=== PATIENT | female | born 1960 | race Caucasian/White ===

== ENCOUNTER → 2018-02-12 | Outpatient (CLI) | payer MEDICARE ==
[2018-02-12 11:05] LABS: Blood Urea Nitrogen 13 mg/dL (7-17)
--- NOTE | 2018-02-12 12:37 | CT ---
EXAMINATION TYPE: CT brain wo/w con, CT orbits wo/w con DATE OF EXAM: 02/12/2018 COMPARISON: NONE HISTORY: Thyrotoxicosis (accession [id number]), thyrotoxicosis (accession [id number]). History of multipl e myeloma and Graves' disease. Left eye swelling. CT DLP: 2166.96 (accession [id number]), 612.58 (accession [id number]) mGycm Automated Exposure Control f or Dose Reduction was Utilized. TECHNIQUE: CT scan of the head and orbits is performed with IV contrast.,CT scan of the head is perfo rmed without and with without and with IV Contrast, patient injected with 100 mL of Isovue 300. FINDINGS: Noncontrast images show no acute intracranial hemorrhage or midline shift. Prominent eladio vascular spaces seen at the level of the right inferior basal ganglia. Small choroid calcification is seen within the foramen of Vasquez. The ventricles and sulci are within normal limits in size. Postco ntrast images show no suspicious enhancing intraparenchymal mass. The globes are intact and the visua lized sinuses are clear. Numerous prominent arachnoid granulations are seen in addition to numerous s ubcentimeter punched-out lesions within the calvarium. No plasmacytomas seen. No widening of the dip loic space. There is bilateral exophthalmos. Lenses are symmetric and maintain their normal position within the a nterior chamber. There is enlargement of the inferior rectus and medial rectus musculature as well as to a lesser degree at the superior rectus and lateral rectus without enlargement of the superior obl ique musculature. The orbital nerves are symmetric but demonstrate peripheral enhancement. There is n o preseptal or post septal inflammatory fat stranding. Superior ophthalmic veins remain nonenlarged. No intraconal or extraconal fat stranding or focal masses seen. Lacrimal glands are symmetric. IMPRESSION: 1. In addition to exophthalmos and extraocular muscle enlargement relating to Graves' ophthalmopathy there is symmetric perineural enhancement of the optic nerve suggesting optic neuritis. Consideration s could be for inflammatory etiology, viral etiology, or demyelinating disease and MRI could be perfo rmed if there is underlying concern for multiple sclerosis. 2. No evidence of intracranial enhancing mass, acute infarct or intracranial hemorrhage. 3. Multiple calvarial lytic lesions in keeping with the patient's history of multiple myeloma. No foc al plasmacytoma is seen.
== END ==
LOC: RADCTMAIN 10:20
PROVIDERS: ATTEND Ophthalmology
DX: E05.00 Thyrotoxicosis with diffuse goiter without thyrotoxic crisis or storm (principal); R93.0 Abnormal findings on diagnostic imaging of skull and head, not elsewhere classified
CPT/HCPCS: 82565; 84520; 70470; 70482; 36415; Q9967

== ENCOUNTER → 2019-01-21 | Outpatient (CLI) | payer MEDICARE ==
[2019-01-21 09:33] LABS: Anisocytosis Slight; Basophils % (A) 1 %; Eosinophils # (A) 0.1 k/uL (0-0.7); Eosinophils % (A) 4 %; HCT 37.1 % (34.0-46.0); HGB 11.9 gm/dL (11.4-16.0); Lymphocytes % (A) 34 %; MCH 29.3 pg (25.0-35.0); MCHC 32.2 g/dL (31.0-37.0); MCV 90.9 fL (80.0-100.0); Mean Platelet Volume 7.2; Monocytes # (A) 0.3 k/uL (0-1.0); Monocytes % (A) 9 %; Neutrophils # (A) 1.4 k/uL (1.3-7.7); Neutrophils % (A) 49 %; Platelet Count 147 k/uL (150-450); RBC 4.08 m/uL (3.80-5.40); RDW 16.6 % (11.5-15.5); WBC 2.9 k/uL (3.8-10.6)
== END | disposition home or self-care (01) ==
LOC: LABWHC1 08:48
PROVIDERS: ATTEND Internal Medicine
DX: C90.01 Multiple myeloma in remission (principal)
CPT/HCPCS: 36415; 85025

== ENCOUNTER 2019-02-28 18:40 | Observation (INO) | payer MEDICARE ==
[2019-02-28] MEDS ORDERED: SODIUM CHLORIDE 0.9% 1,000 ML IV STA (19:55)
[2019-02-28] MEDS ORDERED: diphenhydrAMINE 50 MG/ML 1 ML VIAL IVP STA (19:55)
[2019-02-28] MEDS ORDERED: MAGNESIUM SULFATE-D5W PMX 1 GM in DEXTROSE/WATER 1 100ML.BAG IVPB ONE (19:55)
[2019-02-28] MEDS ORDERED: METOCLOPRAMIDE 5 MG/ML 2 ML VIAL IVP STA (19:55)
[2019-02-28] MEDS ORDERED: DEXAMETHASONE SOD PHOSPHATE 10 MG/ML 1 ML VIAL IV STA (19:56)
[2019-02-28 20:52] LABS: Basophils % (A) 1 %; Eosinophils # (A) 0.2 k/uL (0-0.7); Eosinophils % (A) 5 %; HCT 40.2 % (34.0-46.0); Lymphocytes # (A) 0.8 k/uL (1.0-4.8); Lymphocytes % (A) 15 %; MCH 30.4 pg (25.0-35.0); MCHC 32.4 g/dL (31.0-37.0); MCV 93.8 fL (80.0-100.0); Mean Platelet Volume 6.7; Monocytes # (A) 0.5 k/uL (0-1.0); Monocytes % (A) 9 %; Neutrophils # (A) 3.6 k/uL (1.3-7.7); Neutrophils % (A) 69 %; Platelet Count 132 k/uL (150-450); RBC 4.28 m/uL (3.80-5.40); RDW 15.8 % (11.5-15.5); WBC 5.2 k/uL (3.8-10.6)
[2019-02-28 21:00] LABS: INR 0.9 (<1.2)
[2019-02-28 21:01] LABS: Partial Thromboplastin Time 22.7 sec (22.0-30.0); Prothrombin Time 9.8 sec (9.0-12.0)
[2019-02-28 21:02] LABS: ALT 39 U/L (9-52); AST 29 U/L (14-36); African American GFR (CKD) >90 (>60 ml/min/1.73 sqM); Albumin 4.5 g/dL (3.5-5.0); Alkaline Phosphatase 85 U/L (38-126); Anion Gap 8 mmol/L; Blood Urea Nitrogen 13 mg/dL (7-17); Calcium 9.5 mg/dL (8.4-10.2); Carbon Dioxide 27 mmol/L (22-30); Chloride 105 mmol/L (98-107); Glucose 89 mg/dL (74-99); Potassium 4.1 mmol/L (3.5-5.1); Sodium 140 mmol/L (137-145); Total Bilirubin 0.3 mg/dL (0.2-1.3); Total Protein 6.6 g/dL (6.3-8.2)
--- NOTE | 2019-02-28 22:00 | CT ---
EXAMINATION TYPE: CT brain wo con DATE OF EXAM: 02/28/2019 COMPARISON: 02/12/2018 HISTORY: Headaches and dizziness x2 weeks. CT DLP: 1474.4 mGycm Automated exposure control for dose reduction was used. FINDINGS: Ventricles and sulci appear normal. There is no mass effect nor midline shift. There is no sign of in tracranial hemorrhage. There is no sign of posterior fossa mass. Calvarium is intact. There is no roshan dence of cerebral edema. IMPRESSION: NEGATIVE CT SCAN OF THE BRAIN. NO CHANGE.
--- NOTE | 2019-02-28 22:22 | CT ---
EXAM: CT Angiography Head With Intravenous Contrast CLINICAL HISTORY: Reason: pain TECHNIQUE: Axial computed tomographic angiography images of the head with intravenous contrast using CT angiography protocol. CTDI is 48.8 mGy and DLP is 1088 mGy-cm. This CT exam was performed using one or more of the following dose reduction techniques: automated exposure control, adjustment of the mA and/or kV according to patient size, and/or use of iterative reconstruction technique. MIP reconstructed images were created and reviewed. Coronal and sagittal reformatted images were created and reviewed. COMPARISON: No relevant prior studies available. FINDINGS: Right internal carotid artery: No acute findings. Intracranial segment is patent with no significant stenosis. No aneurysm. Right anterior cerebral artery: Unremarkable. No occlusion or significant stenosis. No aneurysm. Right middle cerebral artery: Unremarkable. No occlusion or significant stenosis. No aneurysm. Right posterior cerebral artery: Unremarkable. No occlusion or significant stenosis. No aneurysm. Right vertebral artery: Unremarkable as visualized. Left internal carotid artery: No acute findings. Intracranial segment is patent with no significant stenosis. No aneurysm. Left anterior cerebral artery: Unremarkable. No occlusion or significant stenosis. No aneurysm. Left middle cerebral artery: Unremarkable. No occlusion or significant stenosis. No aneurysm. Left posterior cerebral artery: Unremarkable. No occlusion or significant stenosis. No aneurysm. Left vertebral artery: Unremarkable as visualized. Basilar artery: Unremarkable. No occlusion or significant stenosis. No aneurysm. IMPRESSION: Normal head CTA. EXAM: CT Angiography Neck With Intravenous Contrast CLINICAL HISTORY: pain TECHNIQUE: Axial computed tomographic angiography images of the neck with intravenous contrast using CT angiography protocol. CTDI is 8.3 mGy and DLP is 364.2 mGy-cm. This CT exam was performed using one or more of the following dose reduction techniques: automated exposure control, adjustment of the mA and/or kV according to patient size, and/or use of iterative reconstruction technique. MIP reconstructed images were created and reviewed. Coronal and sagittal reformatted images were created and reviewed. COMPARISON: No relevant prior studies available. FINDINGS: VASCULATURE: Right common carotid artery: Unremarkable. No significant stenosis. No dissection or occlusion. Right internal carotid artery: Unremarkable. Extracranial segment is patent with no significant stenosis. No dissection or occlusion. Right external carotid artery: Unremarkable. No occlusion. Right vertebral artery: Unremarkable. No significant stenosis. No dissection or occlusion. Left common carotid artery: Unremarkable. No significant stenosis. No dissection or occlusion. Left internal carotid artery: Unremarkable. Extracranial segment is patent with no significant stenosis. No dissection or occlusion. Left external carotid artery: Unremarkable. No occlusion. Left vertebral artery: Unremarkable. No significant stenosis. No dissection or occlusion. NECK: Bones/joints: No acute fracture. No dislocation. Soft tissues: Unremarkable as visualized. No mass. CAROTID STENOSIS REFERENCE USING NASCET CRITERIA: % ICA stenosis = (1 - narrowest ICA diameter/diameter of distal cervical ICA) x 100. Mild - <50% stenosis. Moderate - 50-69% stenosis. Severe - 70-94% stenosis. Near occlusion - 95-99% stenosis. Occluded - 100% stenosis. IMPRESSION: No significant stenosis left or right common or internal carotid artery. Normal appearance of the right vertebral artery.
[2019-02-28] MEDS ORDERED: NALOXONE 0.4 MG/ML 1 ML VIAL IV PRN (22:43)
--- NOTE | 2019-02-28 22:43 | ED ---
Headache HPI - General Chief Complaint: Headache Stated Complaint: HEADACHE, DIZZINESS, ALTERED Time Seen by Provider: 02/28/19 19:04 Mode of arrival: wheelchair Limitations: no limitations - History of Present Illness Initial Comments: The patient is a 58-year-old female who presents to the emergency department with reported headache that started on February 15. She states she was in [place] at that time. She had sudden onset of an occipital headache after having a bowel movement. She did go into [facility]. She was found have an elevated blood pressure at that time. She was admitted and had an MRI performed which demonstrated no acute findings. She was sent home on Fioricet. States that she is dependent on the medication. She takes it every 4 hours as well as Aleve every 12 hours. States that her headache has been persistent. She has been seen twice additionally in the emergency department for the same complaint. Reports that she will get a migraine cocktail and it will keep her headache at bay for a day. She has yet to follow-up with neurology. Continues to report an occipital headache without radiation. She is tender to touch. Denies any associated fevers, chills. No visual changes, unilateral numbness or weakness, slurred speech or facial droop. Reports that today while while making dinner she had an episode of ataxia. States that she was unable to keep her balance and was walking into the cabinets in the kitchen. This did cause her to become acutely concerned she is brought into the emergency room by her family. She is not on any blood thinners. No recent head trauma or chiropractic manipulations. There are no alleviating, precipitating or modifying factors - Related Data Home Medications Medication Instructions Recorded Confirmed Acyclovir 400 mg PO BID 02/28/19 02/28/19 Aspirin EC [Ecotrin Low Dose] 81 mg PO DAILY 02/28/19 02/28/19 Cetirizine HCl [Zyrtec] 5 mg PO DAILY 02/28/19 02/28/19 Lenalidomide [Revlimid] 10 mg PO DIRECTED 02/28/19 02/28/19 Methimazole [Tapazole] 5 mg PO HS 02/28/19 02/28/19 Previous Rx's Medication Instructions Recorded Gabapentin [Neurontin] 300 mg PO HS #30 cap 03/01/19 Allergies Allergy/AdvReac Type Severity Reaction Status Date / Time No Known Allergies Allergy Verified 02/28/19 20:27 Review of Systems ROS Statement: Those systems with pertinent positive or pertinent negative responses have been documented in the HPI. ROS Other: All systems not noted in ROS Statement are negative. Past Medical History Past Medical History: Cancer History of Any Multi-Drug Resistant Organisms: None Reported Past Surgical History: Orthopedic Surgery Past Psychological History: No Psychological Hx Reported Smoking Status: Never smoker Past Alcohol Use History: Occasional Past Drug Use History: None Reported - Past Family History Father Family Medical History: No Reported History General Exam Limitations: no limitations General appearance: alert, in no apparent distress Head exam: Present: atraumatic, normocephalic, other (tenderness to palpation of the occiput near the occipital nerve distribution) Eye exam: Present: normal appearance, PERRL, EOMI. Absent: scleral icterus, conjunctival injection, periorbital swelling ENT exam: Present: normal exam, mucous membranes moist Neck exam: Present: normal inspection. Absent: tenderness, meningismus, lymphadenopathy Respiratory exam: Present: normal lung sounds bilaterally. Absent: respiratory distress, wheezes, rales, rhonchi, stridor Cardiovascular Exam: Present: regular rate, normal rhythm, normal heart sounds. Absent: systolic murmur, diastolic murmur, rubs, gallop, clicks GI/Abdominal exam: Present: soft, normal bowel sounds. Absent: distended, tenderness, guarding, rebound, rigid Extremities exam: Present: normal inspection, full ROM, normal capillary refill. Absent: tenderness, pedal edema, joint swelling, calf tenderness Back exam: Present: normal inspection Neurological exam: Present: alert, oriented X3, CN II-XII intact Psychiatric exam: Present: normal affect, normal mood Skin exam: Present: warm, dry, intact, normal color. Absent: rash Course Vital Signs 02/28/19 02/28/19 02/28/19 18:56 22:20 23:39 Temperature 97.8 F 98.8 F Pulse Rate 71 61 66 Respiratory 20 18 18 Rate Blood Pressure 168/104 127/74 119/69 O2 Sat by Pulse 99 98 99 Oximetry Medical Decision Making - Medical Decision Making Upon arrival the patient is placed into room 9. She is hooked up to continuous pulse ox and cardiac monitoring. A thorough history and physical exam was performed. Peripheral IV was established. The patient was given 1 g of magnesium, 10 milligrams of Decadron, 10 mg of Reglan and 25 mg of Benadryl. I did recommend laboratory studies as well as CT angios of the patient's head and neck due to her reported new onset ataxia. The patient did agree to this. Upon return of the results they are discuss with the patient. I did a repeat a neurologic evaluation which demonstrated no neurologic deficits. The patient continues to have an NIH stroke scale of 0. She reports that her headache is completely resolved at this time. Due to the patient's report of ataxia, I did recommend neurologic evaluation for which the patient did agree. I did call discuss the case with Dr. pham who did accept admission of the patient. I will place Doctor Don on consult. Patient remained in stable condition and was transported to the floor - Differential Diagnosis acute headache, suspected occipital neuralgia - Lab Data Result diagrams: 02/28/19 20:42 02/28/19 20:42 Lab Results 02/28/19 02/28/19 02/28/19 Range/Units 20:42 20:42 20:42 WBC 5.2 (3.8-10.6) k/uL RBC 4.28 (3.80-5.40) m/uL Hgb 13.0 (11.4-16.0) gm/dL Hct 40.2 (34.0-46.0) % MCV 93.8 (80.0-100.0) fL MCH 30.4 (25.0-35.0) pg MCHC 32.4 (31.0-37.0) g/dL RDW 15.8 H (11.5-15.5) % Plt Count 132 L (150-450) k/uL Neutrophils % 69 % Lymphocytes % 15 % Monocytes % 9 % Eosinophils % 5 % Basophils % 1 % Neutrophils # 3.6 (1.3-7.7) k/uL Lymphocytes # 0.8 L (1.0-4.8) k/uL Monocytes # 0.5 (0-1.0) k/uL Eosinophils # 0.2 (0-0.7) k/uL Basophils # 0.0 (0-0.2) k/uL PT 9.8 (9.0-12.0) sec INR 0.9 (<1.2) APTT 22.7 (22.0-30.0) sec Sodium 140 (137-145) mmol/L Potassium 4.1 (3.5-5.1) mmol/L Chloride 105 (98-107) mmol/L Carbon Dioxide 27 (22-30) mmol/L Anion Gap 8 mmol/L BUN 13 (7-17) mg/dL Creatinine 0.73 (0.52-1.04) mg/dL Est GFR (CKD-EPI)AfAm >90 (>60 ml/min/1.73 sqM) Est GFR (CKD-EPI)NonAf >90 (>60 ml/min/1.73 sqM) Glucose 89 (74-99) mg/dL Calcium 9.5 (8.4-10.2) mg/dL Total Bilirubin 0.3 (0.2-1.3) mg/dL AST 29 (14-36) U/L ALT 39 (9-52) U/L Alkaline Phosphatase 85 (38-126) U/L Total Protein 6.6 (6.3-8.2) g/dL Albumin 4.5 (3.5-5.0) g/dL TSH 0.190 L (0.465-4.680) mIU/L Free T4 1.37 (0.78-2.19) ng/dL Disposition Clinical Impression: Cephalgia Disposition: ADMITTED IP TO THIS [facility] Condition: Stable Is patient prescribed a controlled substance at d/c from ED?: No Decision to Admit Reason: Admit from EC Decision Date: 02/28/19 Decision Time: 22:43
[2019-02-28 23:08] LABS: T4, Free (Free Thyroxine) 1.37 ng/dL (0.78-2.19)
[2019-02-28] MEDS ORDERED: ACETAMINOPHEN TAB 325 MG TAB PO PRN (23:34)
[2019-03-01 00:09] VITALS: BMI 25.6
[2019-03-01 04:58] VITALS: RESP 18; TEMP 98
[2019-03-01] MEDS ORDERED: LENALIDOMIDE 10 MG PO SCH ×3 (09:00→21:00)
[2019-03-01] MEDS ORDERED: ASPIRIN 81 MG PO SCH (09:00)
[2019-03-01] MEDS ORDERED: ACYCLOVIR 200 MG CAP PO SCH (09:00)
[2019-03-01] MEDS ORDERED: LORATADINE 10 MG TAB PO SCH (09:00)
--- NOTE | 2019-03-01 10:28 | P.CNNES ---
History of Present Illness Consult date: 03/01/19 Requesting physician: Iris Gutiérrez Reason for Consult: headache, ataxia Chief complaint: Headache, confusion and imbalance History of Present Illness: THis is a 58 RH female h/o multiple myeloma and Graves' disease. 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 On 02/12/19, she was visiting family in [place]. She was in the midst of having a bowel movement when she suddenly developed an excruciating pain that originated at the upper cervical/skull base with radiation to the occipital area. It has affected both sides. There is a lancinating quality to the discomfort, which at its worst is 10+/10. In between attacks, she feels "bruised" pointing to the bilateral suboccipital muscles. When she was in [place], she was checked out medically with a CT and MRI Brain, both reportedly unrevealing per patient. We do not have the medical reports for review today. On 02/25/19, she went to her primary care doctor who prescribed her Fioricet, which she has been taking q12h. She is well aware of the risk of habituation and medication overuse headache with this particular medicine. She recalls that MSO4 did not touch the pain. Toradol did seem to help a little. Typically, the pain is not associated with any neurological symptoms. But, yesterday she felt confused and was off balance bumping into things, so she de cided to present to the ER. She did get chiropractic manipulation up until her diagnosis of multiple myeloma in 2013. Denies associated F/C/S, photosonophobia, N/V, vertigo, drop attacks, seizure, diplopia, amaurosis, facial numbness/droop, bulbar symptoms, alternating or hemianesthesia or paresis or bowel/bladder incontinence. Review of Systems I have performed a 14-point organ ROS with patient; pertinents are as per HPI. Past Medical History Past Medical History: Cancer Additional Past Medical History / Comment(s): Multiple Myeloma History of Any Multi-Drug Resistant Organisms: None Reported Past Surgical History: Orthopedic Surgery Past Anesthesia/Blood Transfusion Reactions: No Reported Reaction Past Psychological History: No Psychological Hx Reported Smoking Status: Never smoker Past Alcohol Use History: Occasional Past Drug Use History: None Reported - Past Family History Father Family Medical History: No Reported History Medications and Allergies Home Medications Medication Instructions Recorded Confirmed Type Acyclovir 400 mg PO BID 02/28/19 02/28/19 History Aspirin EC [Ecotrin Low Dose] 81 mg PO DAILY 02/28/19 02/28/19 History Butalb/Acetaminophen/Caffeine 1 tab PO Q4H PRN 02/28/19 02/28/19 History [Fioricet 50-325-40] Cetirizine HCl [Zyrtec] 5 mg PO DAILY 02/28/19 02/28/19 History Lenalidomide [Revlimid] 10 mg PO DIRECTED 02/28/19 02/28/19 History Methimazole [Tapazole] 5 mg PO HS 02/28/19 02/28/19 History Naproxen Sodium [Aleve] 220 mg PO Q12HR 02/28/19 02/28/19 History Allergies Allergy/AdvReac Type Severity Reaction Status Date / Time No Known Allergies Allergy Verified 02/28/19 20:27 Physical Examination - Vital Signs Vital Signs: Vital Signs Temp Pulse Pulse Resp BP BP Pulse Ox 03/01/19 04:58 98 F 67 18 110/64 97 03/01/19 00:16 97.5 F L 63 16 136/83 99 02/28/19 23:39 98.8 F 66 18 119/69 99 02/28/19 22:20 61 18 127/74 98 02/28/19 18:56 97.8 F 71 20 168/104 99 Intake and Output 02/28/19 03/01/19 03/01/19 22:59 06:59 14:59 Other: Voiding Method Toilet # Voids 1 Weight 69.853 kg Gen NAD Pleasant and cooperative HEENT NCAT Sclera without icterus O/P clear Neck Supple No carotid bruit +Pain on palpation of right rectus capitis Cor RRR no m/r/g Lungs CTAB Abd Soft NTND +BS Ext Warm to touch No edema Neuro MS A+Ox4 Normal fluency Able to follow all commands and articulate a detailed medical history CN PERRL VFF no APD EOMI no nystagmus or JIGNESH No facial asymmetry Masseter's symmetric Hearing intact to normal voice bilaterally Speech not dysarthric Equal elevation of palate Tongue midline Sym shrug and SCM bilaterally Motor Normal bulk/tone No pronator drift or tremors Strength 5/5 sym throughout Sens Intact to LT x4 No neglect Coord No dysmetria on FTN bilaterally DTRs 2+/4 sym throughout Toes downgoing bilaterally No clonus at achilles Gait Deferred Results - Laboratory Findings CBC and BMP: 02/28/19 20:42 02/28/19 20:42 Abnormal Lab Findings: Abnormal Labs 02/28/19 02/28/19 20:42 20:42 RDW 15.8 H Plt Count 132 L Lymphocytes # 0.8 L TSH 0.190 L - Diagnostic Findings Additional findings: CT Head wo cont 02/28/19. No ICH. Nil acute. CTA Head/Neck 02/28/19. No LVO or stenosis. No aneurysm. I have reviewed neuroimages myself. Assessment and Plan Assessment: Occipital headache, suspect occipital neuralgia Plan: -MRI Brain wo abel given c/o acute confusion and ataxia -MRI C-spine wo abel given h/o multiple myeloma and would like to examine structural integrity of C-spine in particular C1-C2 level given occipital nerve originates from C2 -Start gabapentin 300mg po qhs -Dosing instructions and potential side effects of the AED d/w patient. If it turns out to be too strong, she should hold med until she can get in to see an outpatient neurologist who does pain management for consideration of occipital nerve block -If MRIs unrevealing, may discharge and arrange for follow-up with local outpatient neurology within one week -Follow up with endocrinology for her Graves' that if not under control can affect global neurological functioning -d/w patient in great detail. All questions answered. She is agreeable with the above plan -Neurology will be available again on 03/04/19. Thank you for this consultation. Please call with ?. Time with Patient: Greater than 30 (Time spent in direct patient care, greater than 50% of which was spent in [id number] counseling and coordination of care: 70 minutes)
[2019-03-01] MEDS ORDERED: GABAPENTIN 300 MG CAP PO STA (12:50)
[2019-03-01] MEDS ORDERED: KETOROLAC 30 MG/ML 1 ML VIAL IVP STA (15:10)
[2019-03-01] MEDS ORDERED: PROCHLORPERAZINE 5 MG TAB PO PRN (15:11)
--- NOTE | 2019-03-01 15:29 | MR ---
EXAMINATION TYPE: MR brain/cspine wo DATE OF EXAM: 03/01/2019 COMPARISON: CT brain 02/28/2019 HISTORY: Headache CONTRAST: Performed utilizing 0 mL intravenous Gadavist gadolinium contrast. TECHNIQUE: Multiplanar, multiecho imaging on a 3.0 Mel magnet is performed through the brain. Stud y is performed within 24 hours of arrival to the hospital. The craniovertebral junction is normal. The pituitary is normal. Diffusion-weighted imaging is performed. No abnormal hyperintensity is present to suggest an acute i ntracranial infarct or acute ischemic change. Small amount of mild periventricular white matter hyperintensity may be present, likely on the basis of chronic white matter ischemic changes. Few small subcortical punctate areas of hyperintensity are present. Ventricles and sulci are appropriate for the patient age. IMPRESSIONS: 1. Mild periventricular white matter ischemic type changes. EXAMINATION TYPE: MR brain/cspine wo DATE OF EXAM: 03/01/2019 COMPARISON: None HISTORY: Headache Ataxia CONTRAST: Performed utilizing 0 mL intravenous Gadavist gadolinium contrast. TECHNIQUE: Multiplanar multiecho imaging on a 3.0 Mel magnet is performed through the cervical spin e. FINDINGS: The craniovertebral junction is normal. Vertebral body alignment is normal. There is los s of disc height possible congenital changes at the C4-5 level. C7-T1: No focal disc herniation or significant disc bulge is evident. No spinal canal stenosis or n eural foraminal stenosis is present. C6-7: Small amount of central disc bulging is present with mild anterior thecal sac contact. No cord contact is evident. No spinal canal stenosis or neural foraminal.. C5-6: Broad-based endplate changes and disc bulge is present with moderate anterior thecal sac compre ssion. This comes in close approximation with the spinal cord. No cord contact or cord deformity is e vident. No spinal canal stenosis or neural foraminal stenosis is present.. C4-5: Disc spaces narrowed. No disc bulge is evident. Posterior vertebral body fusion is not excluded . No residual disc bulge is evident. Neural foramen are patent C3-4: Mild central bulge is present with anterior thecal sac contact. No spinal canal stenosis or frederick ral foraminal stenosis is present. There is some increased signal on T2 sagittal images suggesting sm all annular tear along the inferior posterior disc space.. C2-3: No focal disc herniation or significant disc bulge is evident. No spinal canal stenosis or frederick ral foraminal stenosis is present. IMPRESSIONS: 1. Endplate changes and disc bulging C5-6 with moderate anterior thecal sac compression without cord contact or stenosis. 2. Possible small annular tear minimal disc bulging C3-4.
--- NOTE | 2019-03-01 15:45 | P.PN ---
Progress Note - Text Progress Note Date: 03/01/19 MRI Brain wo abel showed a few scattered tiny foci on T2/FLAIR that are inconsequential and not explicatory of her headache or other neuro c/o confusion or ataxia. MRI C-spine wo abel does show disc bulge at C3-C4 and C5-C6 but without neuroforaminal or central stenosis or cord compression. In short, her neuroimaging does not reveal an acute neurological structural explanation. Acute pain management per primary team. Recommend gabapentin 300mg po qhs and follow up with outpatient neurology next week for consideration of occipital nerve block. Stable for discharge from neuro standpoint. d/w RN. Please call with new ?.
[2019-03-01 16:18] VITALS: BP 152/96; PULSE 56
--- NOTE | 2019-03-01 17:13 | P.HPIM ---
History of Present Illness H&P Date: 03/01/19 Chief Complaint: Headache Patient is a 58-year-old female with a known history of Graves' disease, multiple myeloma came to ER with complaints of headache mainly right occipital region.On 02/12/19, she was visiting family in [place]. She was in the midst of having a bowel movement when she suddenly developed an excruciating pain that originated at the upper cervical/skull base with radiation to the occipital area. It has affected both sides. There is a lancinating quality to the discomfort, which at its worst is 10+/10. In between attacks, she feels "bruised" pointing to the bilateral suboccipital muscles. When she was in [place], she was checked out medically with a CT and MRI Brain, both reportedly unrevealing per patient. On 02/25/2019 patient went to see her recently and was prescribed Fioricet which she has been taking every 12 hours. Patient presents to hospital with headache currently. Patient says that she felt confused and off balance and bumping into things which made her to come to ER. She did get chiropractic manipulation up until her diagnosis of multiple myeloma in 2013. Denies associated F/C/S, photosonophobia, N/V, vertigo, drop attacks, seizure, diplopia, amaurosis, facial numbness/droop, bulbar symptoms, alternating or hemianesthesia or paresis or bowel/bladder incontinence. CT head showed no acute intracranial process. CT angiogram of the head and neck showed no significant stenosis of the left arm and right common or internal carotid artery. Normal appearance of the right vertebral artery. TSH 0.19 and free T4 level is 1.37 Patient received Decadron IV, magnesium sulfate, Benadryl IV in the ER. Review of Systems Constitutional: Patient denies any fever or chills . No generalized weakness or weight loss. Abdomen: Patient denied nausea vomiting and diarrhea and abdominal pain. Cardiovascular: Patient denies any chest pain or short of breath no palpitations. Respiratory: patient denied any cough is from production. No shortness of breath Neurologic: Patient denied any numbness or tingling . Patient does have occipital headache. Musculoskeletal: Patient denies any complaints of joint swelling or deformity. Skin: Negative Psychiatric: Negative Endocrine: No heat or cold intolerance. No recent weight gain. Genitourinary: No dysuria or hematuria. All other 14 point ROS negative except the above Past Medical History Past Medical History: Cancer Additional Past Medical History / Comment(s): Multiple Myeloma History of Any Multi-Drug Resistant Organisms: None Reported Past Surgical History: Orthopedic Surgery Past Anesthesia/Blood Transfusion Reactions: No Reported Reaction Past Psychological History: No Psychological Hx Reported Smoking Status: Never smoker Past Alcohol Use History: Occasional Past Drug Use History: None Reported - Past Family History Father Family Medical History: No Reported History Medications and Allergies Home Medications Medication Instructions Recorded Confirmed Type Acyclovir 400 mg PO BID 02/28/19 02/28/19 History Aspirin EC [Ecotrin Low Dose] 81 mg PO DAILY 02/28/19 02/28/19 History Butalb/Acetaminophen/Caffeine 1 tab PO Q4H PRN 02/28/19 02/28/19 History [Fioricet 50-325-40] Cetirizine HCl [Zyrtec] 5 mg PO DAILY 02/28/19 02/28/19 History Lenalidomide [Revlimid] 10 mg PO DIRECTED 02/28/19 02/28/19 History Methimazole [Tapazole] 5 mg PO HS 02/28/19 02/28/19 History Naproxen Sodium [Aleve] 220 mg PO Q12HR 02/28/19 02/28/19 History Allergies Allergy/AdvReac Type Severity Reaction Status Date / Time No Known Allergies Allergy Verified 02/28/19 20:27 Physical Exam Vitals: Vital Signs Temp Pulse Pulse Resp BP BP Pulse Ox 03/01/19 04:58 98 F 67 18 110/64 97 03/01/19 00:16 97.5 F L 63 16 136/83 99 02/28/19 23:39 98.8 F 66 18 119/69 99 02/28/19 22:20 61 18 127/74 98 02/28/19 18:56 97.8 F 71 20 168/104 99 Intake and Output 02/28/19 03/01/19 03/01/19 22:59 06:59 14:59 Other: Voiding Method Toilet # Voids 1 Weight 69.853 kg PHYSICAL EXAMINATION: Patient is lying in the bed comfortably, no acute distress, awake alert and oriented.. HEENT: Normocephalic. Neck is supple. Pupils reactive. Nostrils clear. Oral cavity is moist. Ears reveal no drainage. Neck reveals no JVD, carotid bruits, or thyromegaly. CHEST EXAMINATION: Trachea is central. Symmetrical expansion. Lung oconnell clear to auscultation and percussion. CARDIAC: Normal S1, S2 with no gallops. No murmurs ABDOMEN: Soft. Bowel sounds normal. No organomegaly. No abdominal bruits. Extremities: reveal no edema. No clubbing or cyanosis Neurologically awake, alert, oriented x3 with well-coordinated movements. No focal deficits noted Skin: No rash or skin lesions. Psychiatric: Coperative. Nonsuicidal Musculoskeletal: No joint swelling or deformity. Normal range of motion. Results CBC & Chem 7: 02/28/19 20:42 02/28/19 20:42 Labs: Abnormal Lab Results - Last 24 Hours (Table) 02/28/19 02/28/19 Range/Units 20:42 20:42 RDW 15.8 H (11.5-15.5) % Plt Count 132 L (150-450) k/uL Lymphocytes # 0.8 L (1.0-4.8) k/uL TSH 0.190 L (0.465-4.680) mIU/L Thrombosis Risk Factor Assmnt - DVT/VTE Prophylaxis DVT/VTE Prophylaxis: Pharmacologic Prophylaxis ordered - Choose All That Apply Any of the Below Risk Factors Present?: Yes Each Factor Represents 1 point: Age 41-60 years, Obesity (BMI >25) Other Risk Factors: No Thrombosis Risk Factor Assessment Total Risk Factor Score: 2 Thrombosis Risk Factor Assessment Level: Low Risk Assessment and Plan Assessment: occipital headache. Suspected occipital neuralgia Graves' disease. Currently on methimazole. We will need an endocrinology follow-up. TSH level is slightly low at 0.19 with free T4 level is within normal limits History of multiple myeloma DVT prophylaxis Plan: Patient was given a dose of IV Toradol. Patient will be started on gabapentin 300 mg daily at bedtime as per neurology recommendations. Due to gait imbalance and ataxia and also history of multiple myeloma, neurology recommends MRI of the brain and C-spine. Patient be continued on home medications and follow up closely. Neurology is following. Further recommendations based on the clinical course. Time with Patient: Greater than 30
[2019-03-01] MEDS ORDERED: METHIMAZOLE 5 MG TAB PO SCH (21:00)
[2019-03-01] MEDS ORDERED: GABAPENTIN 300 MG CAP PO SCH (21:00)
== END 2019-03-01 18:37 | disposition home or self-care (01) ==
LOC: EC 18:40 → 3NMEDONC 22:49
PROVIDERS: ADMIT Internal Medicine; ATTEND Internal Medicine
DX: R51 Headache (principal); R27.0 Ataxia, unspecified; R41.0 Disorientation, unspecified; E05.00 Thyrotoxicosis with diffuse goiter without thyrotoxic crisis or storm; C90.00 Multiple myeloma not having achieved remission; E66.9 Obesity, unspecified; Z68.25 Body mass index [BMI] 25.0-25.9, adult; M50.222 Other cervical disc displacement at C5-C6 level; Z79.82 Long term (current) use of aspirin; Z79.899 Other long term (current) drug therapy
CPT/HCPCS: 96375 ×2; 96365; 96366; 99285; 36415; 84439; 80053; 84443; 85025; 85610; 85730; 70496; 70450; 70498; 70551; 72141; G0378 ×2; S0183; J1200; J1100; J2765; J1885; J3475; Q9967

== ENCOUNTER → 2019-12-27 | Outpatient (CLI) | payer MEDICARE | END | disposition home or self-care (01) | LOC: LABWHC1 08:31 | PROVIDERS: ATTEND Internal Medicine | DX: J20.9 Acute bronchitis, unspecified (principal) | CPT/HCPCS: 36415; U0003; 86769 ==

== ENCOUNTER 2023-02-28 11:20 | Observation (INO) | payer MEDICARE ==
[2023-02-28 12:11] LABS: Basophils % (A) 0 %; Eosinophils % (A) 1 %; HCT 37.3 % (34.0-46.0); HGB 12.7 gm/dL (11.4-16.0); Lymphocytes # (A) 0.4 k/uL (1.0-4.8); Lymphocytes % (A) 18 %; MCH 33.3 pg (25.0-35.0); MCHC 33.9 g/dL (31.0-37.0); MCV 98.1 fL (80.0-100.0); Mean Platelet Volume 7.8; Monocytes # (A) 0.3 k/uL (0-1.0); Monocytes % (A) 13 %; Neutrophils # (A) 1.3 k/uL (1.3-7.7); Neutrophils % (A) 65 %; Platelet Count 124 k/uL (150-450); RDW 13.7 % (11.5-15.5)
[2023-02-28 12:12] LABS: INR 0.9 (<1.2); Partial Thromboplastin Time 22.7 sec (22.0-30.0); Prothrombin Time 9.8 sec (9.0-12.0)
[2023-02-28 12:41] LABS: ALT 26 U/L (4-34); AST 31 U/L (14-36); African American GFR (CKD) 86 (>60 ml/min/1.73 sqM); Albumin 4.5 g/dL (3.5-5.0); Alkaline Phosphatase 63 U/L (38-126); Anion Gap 8 mmol/L; Blood Urea Nitrogen 13 mg/dL (7-17); Calcium 9.3 mg/dL (8.4-10.2); Carbon Dioxide 27 mmol/L (22-30); Chloride 104 mmol/L (98-107); Glucose 96 mg/dL (74-99); Magnesium 2.2 mg/dL (1.6-2.3); Non-African American GFR(CKD) 74 (>60 ml/min/1.73 sqM); Sodium 139 mmol/L (137-145); Total Bilirubin 0.5 mg/dL (0.2-1.3)
--- NOTE | 2023-02-28 13:12 | XR ---
EXAMINATION TYPE: XR chest 2V DATE OF EXAM: 02/28/2023 1:06 PM COMPARISON: None TECHNIQUE: XR chest 2V Frontal and lateral views of the chest. CLINICAL INDICATION:Female, 62 years old with history of syncope; FINDINGS: Lungs/Pleura: There is no evidence of pleural effusion, focal consolidation, or pneumothorax. Hyperi nflation with flattening of the hemidiaphragms. Pulmonary vascularity: Unremarkable. Heart/mediastinum: Cardiomediastinal silhouette is unremarkable. Musculoskeletal: No acute osseous pathology. Remote left-sided fifth rib fracture. Mild dextrocurvatu re of the thoracic spine. Left shoulder arthropathy. Other: Increased density within the region of the piriform sinuses from probable oral ingestion. IMPRESSION: 1. No acute cardiopulmonary disease/process. 2. COPD changes.
--- NOTE | 2023-02-28 13:48 | ED ---
General Adult HPI - General Chief complaint: Syncope Stated complaint: chest pain Time Seen by Provider: 02/28/23 13:37 Source: patient, RN notes reviewed Mode of arrival: ambulatory Limitations: no limitations - History of Present Illness Initial comments: Patient is a pleasant 62-year-old female presenting to the emergency department with concerns for year syncopal episode. Episode occurred just prior to arrival. Patient felt very lightheaded and did lower herself to the ground. Patient did not pass out but felt she was close. Patient did feel not very well at that time. Patient has been experiencing some mild chest pressure for the last couple of days. Discomfort is rated 2/10. No associated dyspnea, nausea, or diaphoresis. - Related Data Home Medications Medication Instructions Recorded Confirmed Levothyroxine Sodium [Synthroid] 88 mcg PO DAILY 02/28/23 02/28/23 Venetoclax [Venclexta] 800 mg PO DAILY 02/28/23 02/28/23 lisinopriL [Zestril] 2.5 mg PO DAILY 02/28/23 02/28/23 Allergies Allergy/AdvReac Type Severity Reaction Status Date / Time No Known Allergies Allergy Verified 02/28/23 13:46 Review of Systems ROS Statement: Those systems with pertinent positive or pertinent negative responses have been documented in the HPI. ROS Other: All systems not noted in ROS Statement are negative. Constitutional: Denies: fever Eyes: Denies: eye pain ENT: Denies: ear pain Respiratory: Denies: dyspnea Cardiovascular: Reports: as per HPI, chest pain Endocrine: Denies: fatigue Gastrointestinal: Denies: abdominal pain Genitourinary: Denies: urgency Musculoskeletal: Denies: back pain Skin: Denies: rash Neurological: Reports: as per HPI Past Medical History Past Medical History: Cancer, CVA/TIA Additional Past Medical History / Comment(s): Multiple Myeloma History of Any Multi-Drug Resistant Organisms: None Reported Past Surgical History: Orthopedic Surgery Past Anesthesia/Blood Transfusion Reactions: No Reported Reaction Past Psychological History: No Psychological Hx Reported Smoking Status: Never smoker Past Alcohol Use History: Occasional Past Drug Use History: None Reported - Past Family History Father Family Medical History: No Reported History General Exam Limitations: no limitations General appearance: alert, in no apparent distress Head exam: Present: normocephalic Eye exam: Present: normal appearance Neck exam: Present: normal inspection Respiratory exam: Present: normal lung sounds bilaterally. Absent: chest wall tenderness Cardiovascular Exam: Present: regular rate, normal rhythm Expanded Peripheral pulses: 2+: Radial (R), Radial (L), Posterior Tibialis (R), Posterior Tibialis (L) GI/Abdominal exam: Present: soft. Absent: tenderness Extremities exam: Present: normal inspection. Absent: pedal edema, calf tenderness Neurological exam: Present: alert, CN II-XII intact. Absent: motor sensory deficit Psychiatric exam: Present: normal affect, normal mood Skin exam: Present: normal color Course Vital Signs 02/28/23 11:30 Temperature 98 F Pulse Rate 65 Respiratory 20 Rate Blood Pressure 149/73 O2 Sat by Pulse 99 Oximetry EKG Findings - EKG Results: EKG: interpreted by BHUMID (Left axis.), sinus rhythm, normal QRS, normal ST/T EKG shows: bradycardia Medical Decision Making - Medical Decision Making Was pt. sent in by a medical professional or institution (, PA, OFFICE WORKER, urgent care, hospital, or long term...) When possible be specific @ -No Did you speak to anyone other than the patient for history (EMS, parent, family, police, friend...)? What history was obtained from this source @ -Family is present and helps confirm history Did you review nursing and triage notes (agree or disagree)? Why? @ -I reviewed and agree with nursing and triage notes Were old charts reviewed (outside hosp., previous admission, EMS record, old EKG, old radiological studies, urgent care reports/EKG's, long term records)? Report findings @ -No old charts were reviewed Differential Diagnosis (chest pain, altered mental status, abdominal pain women, abdominal pain men, vaginal bleeding, weakness, fever, dyspnea, syncope, headache, dizziness, GI bleed, back pain, seizure, CVA, palpatations, mental health, musculoskeletal)? @ -Differential Syncope: Valvular disease, hypertrophic cardiomyopathy, pulmonary embolism, tamponade, tachycardia, bradycardia, [place], hypovolemia, hemorrhage, dissection, anemia, intracranial hemorrhage, seizure, hypoglycemia, carbon monoxide poisoning, this is not meant to be an all-inclusive list. EKG interpreted by me (3pts min.). @ -As above X-rays interpreted by me (1pt min.). @ -Chest x-ray does not reveal acute abnormality CT interpreted by me (1pt min.). @ -None done U/S interpreted by me (1pt. min.). @ -None done What testing was considered but not performed or refused? (CT, X-rays, U/S, labs)? Why? @ -D-dimer will be added What meds were considered but not given or refused? Why? @ -None Did you discuss the management of the patient with other professionals (professionals i.e. DrHelen, PA, OFFICE WORKER, lab, RT, psych nurse, executive secretary social welfare, sliver handler, teacher, digital marketing officer, trimming caser)? Give summary @ -Case was discussed with Dr. Jones, who will admit for hospital call Was smoking cessation discussed for >3mins.? @ -No Was critical care preformed (if so, how long)? @ -No Were there social determinants of health that impacted care today? How? (Homelessness, low income, unemployed, alcoholism, drug addiction, transportation, low edu. Level, literacy, decrease access to med. care, custodial, rehab)? @ -No Was there de-escalation of care discussed even if they declined (Discuss DNR or withdrawal of care, Hospice)? DNR status @ -No What co-morbidities impacted this encounter? (DM, HTN, Smoking, COPD, CAD, Cancer, CVA, ARF, Chemo, Hep., AIDS, mental health diagnosis, sleep apnea, morbid obesity)? @ -None Was patient admitted / discharged? Hospital course, mention meds given and route, prescriptions, significant lab abnormalities, going to OR and other pertinent info. @ -Patient reevaluated and resting comfortably in bed. Patient family updated on results and plan. Patient will be admitted with cardiac evaluation. D-dimer added. Patient does have leukopenia likely related to medication Undiagnosed new problem with uncertain prognosis? @ -No Drug Therapy requiring intensive monitoring for toxicity (Heparin, Nitro, Insulin, Cardizem)? @ -No Were any procedures done? @ -No Diagnosis/symptom? @ -Chest pain, near syncope Acute, or Chronic, or Acute on Chronic? @ -Acute, acute Uncomplicated (without systemic symptoms) or Complicated (systemic symptoms)? @ -default Side effects of treatment? @ -No Exacerbation, Progression, or Severe Exacerbation? @ -No Poses a threat to life or bodily function? How? (Chest pain, [place], [place], pneumonia, PE, COPD, DKA, ARF, appy, cholecystitis, CVA, Diverticulitis, Homicidal, Suicidal, threat to staff... and all critical care pts) @ -No - Lab Data Result diagrams: 02/28/23 11:53 02/28/23 11:53 Lab Results 02/28/23 02/28/23 02/28/23 Range/Units 11:53 11:53 11:53 WBC 2.0 L (3.8-10.6) k/uL RBC 3.80 (3.80-5.40) m/uL Hgb 12.7 (11.4-16.0) gm/dL Hct 37.3 (34.0-46.0) % MCV 98.1 (80.0-100.0) fL MCH 33.3 (25.0-35.0) pg MCHC 33.9 (31.0-37.0) g/dL RDW 13.7 (11.5-15.5) % Plt Count 124 L (150-450) k/uL MPV 7.8 Neutrophils % 65 % Lymphocytes % 18 % Monocytes % 13 % Eosinophils % 1 % Basophils % 0 % Neutrophils # 1.3 (1.3-7.7) k/uL Lymphocytes # 0.4 L (1.0-4.8) k/uL Monocytes # 0.3 (0-1.0) k/uL Eosinophils # 0.0 (0-0.7) k/uL Basophils # 0.0 (0-0.2) k/uL PT 9.8 (9.0-12.0) sec INR 0.9 (<1.2) APTT 22.7 (22.0-30.0) sec Sodium 139 (137-145) mmol/L Potassium 4.0 (3.5-5.1) mmol/L Chloride 104 (98-107) mmol/L Carbon Dioxide 27 (22-30) mmol/L Anion Gap 8 mmol/L BUN 13 (7-17) mg/dL Creatinine 0.84 (0.52-1.04) mg/dL Est GFR (CKD-EPI)AfAm 86 (>60 ml/min/1.73 sqM) Est GFR (CKD-EPI)NonAf 74 (>60 ml/min/1.73 sqM) Glucose 96 (74-99) mg/dL Calcium 9.3 (8.4-10.2) mg/dL Magnesium 2.2 (1.6-2.3) mg/dL Total Bilirubin 0.5 (0.2-1.3) mg/dL AST 31 (14-36) U/L ALT 26 (4-34) U/L Alkaline Phosphatase 63 (38-126) U/L Troponin I (0.000-0.034) ng/mL Total Protein 7.0 (6.3-8.2) g/dL Albumin 4.5 (3.5-5.0) g/dL 02/28/23 Range/Units 11:53 WBC (3.8-10.6) k/uL RBC (3.80-5.40) m/uL Hgb (11.4-16.0) gm/dL Hct (34.0-46.0) % MCV (80.0-100.0) fL MCH (25.0-35.0) pg MCHC (31.0-37.0) g/dL RDW (11.5-15.5) % Plt Count (150-450) k/uL MPV Neutrophils % % Lymphocytes % % Monocytes % % Eosinophils % % Basophils % % Neutrophils # (1.3-7.7) k/uL Lymphocytes # (1.0-4.8) k/uL Monocytes # (0-1.0) k/uL Eosinophils # (0-0.7) k/uL Basophils # (0-0.2) k/uL PT (9.0-12.0) sec INR (<1.2) APTT (22.0-30.0) sec Sodium (137-145) mmol/L Potassium (3.5-5.1) mmol/L Chloride (98-107) mmol/L Carbon Dioxide (22-30) mmol/L Anion Gap mmol/L BUN (7-17) mg/dL Creatinine (0.52-1.04) mg/dL Est GFR (CKD-EPI)AfAm (>60 ml/min/1.73 sqM) Est GFR (CKD-EPI)NonAf (>60 ml/min/1.73 sqM) Glucose (74-99) mg/dL Calcium (8.4-10.2) mg/dL Magnesium (1.6-2.3) mg/dL Total Bilirubin (0.2-1.3) mg/dL AST (14-36) U/L ALT (4-34) U/L Alkaline Phosphatase (38-126) U/L Troponin I <0.012 (0.000-0.034) ng/mL Total Protein (6.3-8.2) g/dL Albumin (3.5-5.0) g/dL Disposition Clinical Impression: Chest pain, Near syncope Disposition: ADMITTED IP TO THIS HOSP Is patient prescribed a controlled substance at d/c from ED?: No Referrals: Heladio Cruz MD [Primary Care Provider] - 1-2 days Time of Disposition: 14:04
[2023-02-28] MEDS ORDERED: ASPIRIN 81 MG PO STA (14:05)
[2023-02-28] MEDS ORDERED: NITROGLYCERIN SL TABS 0.4 MG TAB SUBLINGUAL PRN (14:05)
[2023-02-28] MEDS: NITROGLYCERIN OINT 1 INCH/GM PACKET TOPICAL SCH ×2 (14:37→17:26)
--- NOTE | 2023-02-28 15:26 | P.HPIM ---
History of Present Illness H&P Date: 02/28/23 History of Presenting Illness: Patient is a very pleasant 62-year-old female with a past medical history of multiple myeloma currently on chemotherapy treatments, hypertension, hy pothyroidism, and hyperlipidemia diet controlled. She presented to the emergency department with a chief complaint of chest tightness. Patient reports initially experiencing some tightness to her midsternal chest yesterday evening followed by recurrent episodes of eructation unrelieved by Tums. She reports she went to bed and this morning again felt that same tightness in her chest and overall just did not feel right. Patient reports this chest tightness continued and she began to feel very "woozy" almost as if she were going to pass out and she lowered herself to the ground. Patient states she called for help and came to the ER for evaluation. Patient is currently on oral chemotherapy treatment with Venetoclax and states that she follows with manager new product Dr. Werner at [facility]. Patient denies having any other complaints, recent illnesses, or exposure to known ill contacts. She denies having headache, changes in vision or hearing, palpitations, shortness of breath, cough or congestion, abdominal pain, nausea, vomiting, or experiencing any numbness/tingling/weakness/swelling in her extremities. Patient was given aspirin and sublingual nitro and reports this resulted in full resolution of her chest tightness. Patient underwent extensive evaluation and upon arrival to the emergency department. Vital signs stable with blood pressure 149/73, heart rate 65, respiratory rate 20, temp 98.0F, and SpO2 of 99% on room air. EKG was completed belen patient was given aspirin wing sinus bradycardia at 58 bpm with no noted T-wave or ST abnormalities upon personal review and interpretation. Chest x-ray completed showing COPD changes with hyperinflation and flattening of the diaphragm otherwise negative for acute cardiopulmonary process. Labs completed and reviewed. CBC showing bicytopenia with WBC count of 2.0 and platelet count of 124. Coagulation profile normal findings including d-dimer of 0.27. CMP unremarkable. Troponin negative at less than 0.012. Discussed patient's history, current complaints, laboratory analysis, and imaging results in detail with the ED physician. Patient to be admitted to observation unit with telemetry under services. Consult placed to cardiology. Review of systems: Pertinent positives and negatives as discussed in HPI, a complete review of systems was performed and all other systems are negative. Physical exam: Vital signs reviewed and stable. General: Nontoxic, no distress and appears stated age. Derm: Skin warm and dry, normal coloration for ethnicity. Head: Atraumatic, normocephalic and symmetric. Eyes: EOMs intact, no lid lag, and anicteric sclera Mouth: no lip lesions, mucus membranes moist Cardiovascular: regular rate and rhythm with normal S1S2, no murmur, positive posterior tibial pulses bilaterally, and cap refill < 2 seconds. Lungs: Respirations even, regular, and unlabored on room air. Lungs CTA bilaterally, no rhonchi, no rales, no wheezing, and no accessory muscle usage. Abdominal: soft, nontender to palpation, no guarding, no appreciable organomegaly Ext: ROM intact. No gross muscle atrophy, no edema, no contractures Neuro: Speech clear, face symmetrical and CN II-XII grossly intact with no noted focal neuro deficits Psych: Alert and oriented to person, place, time, and situation. Appropriate and pleasant affect. Assessment and Plan of Care: Chest pain, rule out acute coronary event Hypertension Hyperlipidemia -Cardiology consulted, appreciate further recommendations -Telemetry monitoring -Trend troponins -Cardiac diet, NPO at midnight -Patient started on aspirin 325 mg daily and to continue lisinopril 2.5 mg daily. -Lipid profile with a.m. labs. -Echocardiogram Hypothyroidism Continue daily medication regimen with levothyroxine 88 g daily. 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 Werner at [facility]. Patient to continue to follow-up outpatient with oncologist with [facility]. Data review: - Vital signs stable with blood pressure 149/73, heart rate 65, respiratory rate 20, temp 98.0F, and SpO2 of 99% on room air. -EKG was completed belen patient was given aspirin wing sinus bradycardia at 58 bpm with no noted T-wave or ST abnormalities upon personal review and interpretation. -Chest x-ray completed showing COPD changes with hyperinflation and flattening of the diaphragm otherwise negative for acute cardiopulmonary process. -Labs completed and reviewed. CBC showing bicytopenia with WBC count of 2.0 and platelet count of 124. Coagulation profile normal findings including d-dimer of 0.27. CMP unremarkable. Troponin negative at less than 0.012. -Discussed patient's history, current complaints, laboratory analysis, and imaging results in detail with the ED physician. -Patient to be admitted to observation unit with telemetry under services. CODE STATUS: Full code DVT prophylaxis: Heparin Discussed with: Patient, RN, in ED physician Anticipated discharge date: 24-[address]: Home Patient was seen independently by Nurse Practitioner. This document was prepared using ChatID dictation software. Please allow for errors in shoemaker custom while rare they do occur. I reviewed the documentation as provided by the TIMBO above, who is the original author of this note. I agree with the documented assessment and plan, with the following changes: none Past Medical History Past Medical History: Cancer, CVA/TIA Additional Past Medical History / Comment(s): Multiple Myeloma History of Any Multi-Drug Resistant Organisms: None Reported Past Surgical History: Orthopedic Surgery Past Anesthesia/Blood Transfusion Reactions: No Reported Reaction Past Psychological History: No Psychological Hx Reported Smoking Status: Never smoker Past Alcohol Use History: Occasional Past Drug Use History: None Reported - Past Family History Father Family Medical History: No Reported History Medications and Allergies Home Medications Medication Instructions Recorded Confirmed Type Levothyroxine Sodium [Synthroid] 88 mcg PO DAILY 02/28/23 02/28/23 History Venetoclax [Venclexta] 800 mg PO DAILY 02/28/23 02/28/23 History lisinopriL [Zestril] 2.5 mg PO DAILY 02/28/23 02/28/23 History Colchicine [Colcrys] 0.6 mg PO DAILY 7 Days #7 tablet 03/01/23 Rx Allergies Allergy/AdvReac Type Severity Reaction Status Date / Time No Known Allergies Allergy Verified 02/28/23 13:46 Physical Exam Osteopathic Statement: *. No significant issues noted on an osteopathic structural exam other than those noted in the History and Physical/Consult. Vitals: Vital Signs Temp Pulse Resp BP Pulse Ox 02/28/23 14:52 58 L 18 133/69 99 02/28/23 11:30 98 F 65 20 149/73 99 Intake and Output 02/28/23 02/28/23 02/28/23 06:59 14:59 22:59 Other: Weight 73.936 kg Results CBC & Chem 7: 02/28/23 11:53 02/28/23 11:53 Labs: Abnormal Lab Results - Last 24 Hours (Table) 02/28/23 Range/Units 11:53 WBC 2.0 L (3.8-10.6) k/uL Plt Count 124 L (150-450) k/uL Lymphocytes # 0.4 L (1.0-4.8) k/uL
[2023-02-28] MEDS ORDERED: ATORVASTATIN 40 MG TAB PO SCH (21:00)
[2023-02-28] MEDS ORDERED: HYDROcodone/APAP 5-325MG 1 EACH TAB PO PRN (21:11)
[2023-02-28] MEDS ORDERED: ACETAMINOPHEN TAB 325 MG TAB PO PRN (21:28)
[2023-03-01] MEDS: HEPARIN SODIUM,PORCINE 5,000 UNIT/ML 1 ML VIAL SQ SCH ×2 (01:04→09:40)
[2023-03-01] MEDS: NITROGLYCERIN OINT 1 INCH/GM PACKET TOPICAL SCH ×3 (01:04→13:16)
[2023-03-01] MEDS ORDERED: LEVOTHYROXINE 88 MCG TAB PO SCH (06:30)
[2023-03-01 07:34] VITALS: BP 118/75; PULSE 52; RESP 16; TEMP 97.7
[2023-03-01] MEDS ORDERED: ASPIRIN 325 MG TAB PO SCH (09:00)
[2023-03-01] MEDS ORDERED: VENETOCLAX 100 MG PO SCH (09:00)
[2023-03-01 09:06] LABS: Chol/HDL Ratio 3.35 Ratio; LDL Cholesterol,Calculated 111.9 mg/dL (0.0-131.0); VLDL Calculation 12.34 mg/dL (5.00-40.00)
--- NOTE | 2023-03-01 10:30 | P.CRDCN ---
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 She has a past medical history of multiple myeloma, hypertension, hyperlipidemia. We have been asked to evaluate the patient for chest pain and near syncope. Patient gives history that her gait has been unsteady she has had a number of episodes. Yesterday she had gotten up around 7:00 had breakfast and then around 9:00 she started feeling woozy and unsteady but no spinning. She walked into her bedroom to the closet and she helped herself to the floor without fall and without loss of consciousness. She does not feel that she is going to pass out. She checks her blood pressure was 158/85 and heart rate was 73. She states the night before she had an episode of chest pain. She has never had any sensation prior to this. Regarding her cancer treatment, she normally has soft or watery stools 1-3 times per week but was only soft yesterday. She also gives history that her blood pressure is very sensitive and will bottom out if she goes up to lisinopril 5 mg which has been attempted in the past. Orthostatic vital signs have been checked here have been negative. EKG sinus rhythm with no acute changes Chest x-ray: No acute process. COPD changes. WBC 2, hemoglobin 12.7, platelet count 125. D-dimer 0.27. INR 0.9. CMP normal. Troponins negative 3. Triglycerides 61, cholesterol 177, LDL 111, HDL 52. Home cardiac medications: Lisinopril 2.5 mg daily, levothyroxine 88 g daily Review Of Systems: At the time of my evaluation: Constitutional: No fever, no chills. No weakness, fatigue or lethargy. EENT: No headache. No dizziness. Lungs: No shortness of breath, cough, no sputum production. No wheezing. Cardiovascular: No chest pain, no lower extremity edema. No palpitations. No paroxysmal nocturnal dyspnea. No orthopnea. No lightheadedness or dizziness. No syncopal episodes. Abdominal: No abdominal pain. No nausea, vomiting. Intermittent diarrhea. No constipation. No bloody or tarry stools. Musculoskeletal: No myalgias. No muscle weakness, no frequent falls. Integumentary: No wounds. No rash. No unusual bruising. Neurologic: No aphasia. No facial droop. No change in mentation. Physical examination: Gen: This is a 62-year-old female. She is resting but appears to be comfortable and in no acute distress. VS: reviewed HEENT: Head is atraumatic, normocephalic. Pupils equal, round. Sclerae is anicteric. NECK: Supple. No JVD. LUNGS: Clear to auscultation. No wheezes or rhonchi. No intercostal retractions. HEART: Regular rate and rhythm. No murmur. ABDOMEN: Soft No tenderness. EXTREMITIES: No pedal edema. No calf tenderness. NEUROLOGICAL: Patient is awake, alert and oriented x3. Assessment: Unsteady gait Possible fluctuating blood pressure Multiple myeloma Hypertension Hyperlipidemia Plan: Resume lisinopril 2.5 mg daily Obtain 2-D echocardiogram and Doppler study to assess cardiac structure and function Increase activity and monitor blood pressure, if patient has no further episodes of unsteadiness, she may be discharged home and may follow-up with her hat forming machine operator. Discussed with the patient to check her blood pressure at home in the morning and evening and take this record to her next hat forming machine operator appointment. Thank you kindly for this consultation. Nurse practitioner note has been reviewed, I agree with documented findings and plan of care. Patient was seen and examined. Past Medical History Past Medical History: Cancer, CVA/TIA Additional Past Medical History / Comment(s): Multiple Myeloma History of Any Multi-Drug Resistant Organisms: None Reported Past Surgical History: Orthopedic Surgery Additional Past Surgical History / Comment(s): Left leg Past Anesthesia/Blood Transfusion Reactions: No Reported Reaction Past Psychological History: No Psychological Hx Reported Smoking Status: Never smoker Past Alcohol Use History: Occasional Past Drug Use History: None Reported - Past Family History Father Family Medical History: No Reported History Medications and Allergies Home Medications Medication Instructions Recorded Confirmed Type Levothyroxine Sodium [Synthroid] 88 mcg PO DAILY 02/28/23 02/28/23 History Venetoclax [Venclexta] 800 mg PO DAILY 02/28/23 02/28/23 History lisinopriL [Zestril] 2.5 mg PO DAILY 02/28/23 02/28/23 History Allergies Allergy/AdvReac Type Severity Reaction Status Date / Time No Known Allergies Allergy Verified 02/28/23 13:46 Physical Exam Vitals: Vital Signs Temp Pulse Pulse Pulse Pulse Pulse Resp 03/01/23 07:58 03/01/23 07:14 97.7 F 58 L 55 L 52 L 16 03/01/23 00:30 97.6 F 60 15 02/28/23 19:30 98.2 F 69 66 63 15 02/28/23 17:50 98.1 F 13 02/28/23 17:00 98.6 F 60 18 02/28/23 14:52 58 L 18 02/28/23 11:30 98 F 65 20 BP BP BP BP BP Pulse Ox FiO2 03/01/23 07:58 96 21 03/01/23 07:14 107/70 128/86 118/75 98 03/01/23 00:30 103/60 97 02/28/23 19:30 119/71 113/68 115/65 98 02/28/23 17:50 112/68 98 02/28/23 17:00 116/76 100 02/28/23 14:52 133/69 99 02/28/23 11:30 149/73 99 Intake and Output 02/28/23 03/01/23 03/01/23 22:59 06:59 14:59 Other: Voiding Method Toilet # Voids 1 3 Weight 73.936 kg Results 02/28/23 11:53 02/28/23 11:53 Cardiac Enzymes 02/28/23 02/28/23 02/28/23 Range/Units 11:53 11:53 16:33 AST 31 (14-36) U/L Troponin I <0.012 <0.012 (0.000-0.034) ng/mL 02/28/23 Range/Units 20:03 AST (14-36) U/L Troponin I <0.012 (0.000-0.034) ng/mL Coagulation 02/28/23 Range/Units 11:53 PT 9.8 (9.0-12.0) sec APTT 22.7 (22.0-30.0) sec CBC 02/28/23 Range/Units 11:53 WBC 2.0 L (3.8-10.6) k/uL RBC 3.80 (3.80-5.40) m/uL Hgb 12.7 (11.4-16.0) gm/dL Hct 37.3 (34.0-46.0) % Plt Count 124 L (150-450) k/uL Comprehensive Metabolic Panel 02/28/23 Range/Units 11:53 Sodium 139 (137-145) mmol/L Potassium 4.0 (3.5-5.1) mmol/L Chloride 104 (98-107) mmol/L Carbon Dioxide 27 (22-30) mmol/L BUN 13 (7-17) mg/dL Creatinine 0.84 (0.52-1.04) mg/dL Glucose 96 (74-99) mg/dL Calcium 9.3 (8.4-10.2) mg/dL AST 31 (14-36) U/L ALT 26 (4-34) U/L Alkaline Phosphatase 63 (38-126) U/L Total Protein 7.0 (6.3-8.2) g/dL Albumin 4.5 (3.5-5.0) g/dL Current Medications Generic Name Dose Route Start Last Admin Trade Name Freq PRN Reason Stop Dose Admin Acetaminophen 650 mg 02/28/23 21:28 02/28/23 21:34 Acetaminophen Tab 325 Mg Tab PO 650 mg Q4HR PRN Administration Fever and/ or Pain Hydrocodone Bitart/Acetaminophen 1 each 02/28/23 21:11 Hydrocodone/Apap 5-325mg 1 Each Tab PO Q4HR PRN Pain Aspirin 325 mg 03/01/23 09:00 Aspirin 325 Mg Tab PO DAILY ELMO Atorvastatin Calcium 40 mg 02/28/23 21:00 02/28/23 20:38 Atorvastatin 40 Mg Tab PO 40 mg HS ELMO Administration Heparin Sodium (Porcine) 5,000 unit 03/01/23 00:00 03/01/23 01:04 Heparin Sodium,Porcine 5,000 Unit/Ml 1 Ml Vial SQ Not Given Q8HR ELMO Levothyroxine Sodium 88 mcg 03/01/23 06:30 03/01/23 06:02 Levothyroxine 88 Mcg Tab PO 88 mcg 0630 ELMO Administration Lisinopril 2.5 mg 03/01/23 09:00 Lisinopril 2.5 Mg Tab PO DAILY ELMO Nitroglycerin 0.4 mg 02/28/23 14:05 Nitroglycerin Sl Tabs 0.4 Mg Tab SUBLINGUAL Q5M PRN Chest Pain Nitroglycerin 0.5 inch 02/28/23 14:15 03/01/23 05:30 Nitroglycerin Oint 1 Inch/Gm Packet TOPICAL Not Given Q6HR [facility] Patient's Own ( 800 mg 03/01/23 09:00 Venetoclax [ PO Venclexta] 100 Mg DAILY ELMO Tablet) Intake and Output 02/28/23 03/01/23 03/01/23 22:59 06:59 14:59 Other: Voiding Method Toilet # Voids 1 3 Weight 73.936 kg 02/28/23 11:53 02/28/23 11:53
--- NOTE | 2023-03-01 10:37 | CA ---
Transthoracic Echo Report Name: Evelia Covarrubias Age: 62 Gender: F : 1960 Exam Date: 03/01/2023 07:23 Exam Location: [facility] Ht (in): 65 Wt (lb): 163 Ordering Physician: Rasheed Reich Attending/Referring Phys: Dealership Manager Aggie Youngblood RDCS Procedure CPT: Indications: Evaluate structure and function Cardiac Hx: Technical Quality: Fair Contrast 1: Total Dose (mL): Contrast 2: Total Dose (mL): MEASUREMENTS (Male / Female) Normal Values 2D ECHO LV Diastolic Diameter PLAX 4.2 cm 4.2 - 5.9 / 3.9 - 5.3 cm LV Systolic Diameter PLAX 2.8 cm IVS Diastolic Thickness 1.3 cm 0.6 - 1.0 / 0.6 - 0.9 cm LVPW Diastolic Thickness 1.0 cm 0.6 - 1.0 / 0.6 - 0.9 cm LV Relative Wall Thickness 0.5 RV Internal Dim ED PLAX 3.0 cm LA Volume 49.2 cm??? 18 - 58 / 22 - 52 cm??? M-MODE Aortic Root Diameter MM 2.8 cm LA Systolic Diameter MM 3.4 cm LA Ao Ratio MM 1.2 AV Cusp Separation MM 1.8 cm DOPPLER AV Peak Velocity 123.1 cm/s AV Peak Gradient 6.1 mmHg AV Mean Velocity 89.4 cm/s AV Mean Gradient 3.5 mmHg AV Velocity Time Integral 30.3 cm LVOT Peak Velocity 90.7 cm/s LVOT Peak Gradient 3.3 mmHg LVOT Velocity Time Integral 23.3 cm MV Area PHT 3.5 cm??? Mitral E Point Velocity 94.3 cm/s Mitral A Point Velocity 88.5 cm/s Mitral E to A Ratio 1.1 MV Deceleration Time 216.5 ms MV E' Velocity 4.6 cm/s Mitral E to MV E' Ratio 20.3 TR Peak Velocity 227.3 cm/s TR Peak Gradient 20.7 mmHg Right Ventricular Systolic Press 25.2 mmHg FINDINGS Left Ventricle Moderately increased left ventricular wall thickness. Normal left ventricular systolic function with no obvious regional wall motion abnormalities. Left ventricular cavity size normal. Left ventricular ejection fraction is estimated at 55-60 %. Right Ventricle Normal right ventricular size and function. Right ventricular systolic pressure within normal limits. Right Atrium Normal right atrial size. Left Atrium Normal left atrial size. Mitral Valve Structurally normal mitral valve. Mild thickening/calcification of the anterior mitral valve leaflet. Mild mitral annular calcification. Mild mitral regurgitation. Aortic Valve Trileaflet aortic valve. No aortic valve stenosis or regurgitation. Tricuspid Valve Structurally normal tricuspid valve. Mild tricuspid regurgitation. Pulmonic Valve Structurally normal pulmonic valve. Trace pulmonic regurgitation. Pericardium Small pericardial effusion. Aorta Normal size aortic root and proximal ascending aorta. CONCLUSIONS Normal LV size and systolic function Normal RV size and function Evidence of chronic pericarditis with thickened pericardium posteriorly with small pericardial effusion of no hemodynamic significance Previewed by: Dr. Mikey Camargo MD (Electronically Signed) Final Date: 01 March 2023 10:37
--- NOTE | 2023-03-01 11:45 | P.DS ---
Providers Date of admission: 02/28/23 14:06 Expected date of discharge: 03/01/23 Attending physician: Feliz Butler MD Consults: 02/28/23 14:05 Consult Physician Urgent Consulting Provider: Jaspreet Pina Consult Reason/Comments: cp, near syncope Do you want consulting provider notified?: Yes Primary care physician: Heladio Cruz Hospital Course: Discharge Diagnosis: Chronic pericarditis, diagnosed during admission after completion of echocardiogram. Patient discharged home on colchicine 0.6 mg daily 7 days and to follow up outpatient with PCP in 1-2 days, oncologist as scheduled, and retail management keyholder in 4 weeks. Chest pain, acute coronary event ruled out. Troponins trended overnight all negative at less than 0.0123 draws. Lipid profile unremarkable. EKG continues to show sinus mechanism with sinus bradycardia at 49 bpm with no noted T-wave or ST abnormalities upon personal review and interpretation. Patient underwent evaluation by retail management keyholder. Echocardiogram was completed showing preserved EF of 55-60% with evidence of chronic pericarditis with thickened pericardium posteriorly with small pericardial effusion. Cardiology clearing patient from cardiac perspective for discharge recommending colchicine 0.6 mg daily 1 week in outpatient follow-up in our office in 4 weeks. Medically, patient is stable for discharge at this time. Patient discharged home on colchicine 0.6 mg daily 7 days and to follow up outpatient with PCP in 1-2 days, oncologist as scheduled, and retail management keyholder in 4 weeks. Hypertension. Continue lisinopril 2.5 mg daily. Hyperlipidemia. Continue heart healthy diet. Lipid profile unremarkable. Hypothyroidism. Continue daily medication regimen with levothyroxine 88 g daily. Multiple myeloma. Patient to continue with oral chemotherapeutic agent Venetoclax and continue to follow up outpatient with hospital scientist/oncologist Dr. Werner at [facility] scheduled . 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 She presented to the emergency department with a chief complaint of chest tightness. Patient reports initially experiencing some tightness to her midsternal chest yesterday evening followed by recurrent episodes of eructation unrelieved by Tums. She reports she went to bed and this morning again felt that same tightness in her chest and overall just did not feel right. Patient reports this chest tightness continued and she began to feel very "woozy" almost as if she were going to pass out and she lowered herself to the ground. Patient states she called for help and came to the ER for evaluation. Patient is currently on oral chemotherapy treatment with Venetoclax and states that she follows with hospital scientist Dr. Wrener at [facility]. Patient denies having any other complaints, recent illnesses, or exposure to known ill contacts. She denies having headache, changes in vision or hearing, palpitations, shortness of breath, cough or congestion, abdominal pain, nausea, vomiting, or experiencing any numbness/tingling/weakness/swelling in her extremities. Patient was given aspirin and sublingual nitro and reports this resulted in full resolution of her chest tightness. Patient underwent extensive evaluation and upon arrival to the emergency department. Vital signs stable with blood pressure 149/73, heart rate 65, respiratory rate 20, temp 98.0F, and SpO2 of 99% on room air. EKG was completed belen patient was given aspirin wing sinus bradycardia at 58 bpm with no noted T-wave or ST abnormalities upon personal review and interpretation. Chest x-ray completed showing COPD changes with hyperinflation and flattening of the diaphragm otherwise negative for acute cardiopulmonary process. Labs completed and reviewed. CBC showing bicytopenia with WBC count of 2.0 and platelet count of 124. Coagulation profile normal findings including d-dimer of 0.27. CMP unrem arkable. Troponin negative at less than 0.012. Discussed patient's history, current complaints, laboratory analysis, and imaging results in detail with the ED physician. Patient to be admitted to observation unit with telemetry under services. Consult placed to cardiology. Troponins trended overnight all negative at less than 0.0123 draws. Lipid profile unremarkable. EKG continues to show sinus mechanism with sinus bradycardia at 49 bpm with no noted T-wave or ST abnormalities upon personal review and interpretation. Patient underwent evaluation by retail management keyholder. Echocardiogram was completed showing preserved EF of 55-60% with evidence of chronic pericarditis with thickened pericardium posteriorly with small pericardial effusion. Cardiology clearing patient from cardiac perspective for discharge recommending colchicine 0.6 mg daily 1 week in outpatient follow-up in our office in 4 weeks. Medically, patient is stable for discharge at this time. Patient discharged home on colchicine 0.6 mg daily 7 days and to follow up outpatient with PCP in 1-2 days, oncologist as scheduled, and retail management keyholder in 4 weeks. Physical exam: Patient seen and fully evaluated at bedside this morning. Patient reports she has been free from any further episodes of chest tightness since yesterday evening and denies having any other complaints at this time. Vital signs reviewed and stable. General: Nontoxic, no distress and appears stated age. Derm: Skin warm and dry, normal coloration for ethnicity. Head: Atraumatic, normocephalic and symmetric. Eyes: EOMs intact, no lid lag, and anicteric sclera Mouth: no lip lesions, mucus membranes moist Cardiovascular: regular rate and rhythm with normal S1S2, no murmur, positive posterior tibial pulses bilaterally, and cap refill < 2 seconds. Lungs: Respirations even, regular, and unlabored on room air. Lungs CTA bilaterally, no rhonchi, no rales, no wheezing, and no accessory muscle usage. Abdominal: soft, nontender to palpation, no guarding, no appreciable organomegaly Ext: ROM intact. No gross muscle atrophy, no edema, no contractures Neuro: Speech clear, face symmetrical and CN II-XII grossly intact with no noted focal neuro deficits Psych: Alert and oriented to person, place, time, and situation. Appropriate and pleasant affect. A total of 34 minutes of time were spent preparing this complex discharge summary. Pt was discharged on 03/01/23 at 11:44 AM. Patient was seen independently by Nurse Practitioner. This document was prepared using [employer] dictation software. Please allow for errors in mamma logist while rare they do occur. Rasheed Reich NP rendered care for this patient independently, reviewed the findings and plan as documented in the note above. I did not physically speak with or examine the patient on this date. Patient Condition at Discharge: Stable Plan - Discharge Summary Discharge Rx Participant: Yes New Discharge Prescriptions: New Colchicine [Colcrys] 0.6 mg PO DAILY 7 Days #7 tablet Continue Levothyroxine Sodium [Synthroid] 88 mcg PO DAILY lisinopriL [Zestril] 2.5 mg PO DAILY Venetoclax [Venclexta] 800 mg PO DAILY Discharge Medication List Levothyroxine Sodium [Synthroid] 88 mcg PO DAILY 02/28/23 [History] Venetoclax [Venclexta] 800 mg PO DAILY 02/28/23 [History] lisinopriL [Zestril] 2.5 mg PO DAILY 02/28/23 [History] Colchicine [Colcrys] 0.6 mg PO DAILY 7 Days #7 tablet 03/01/23 [Rx] Follow up Appointment(s)/Referral(s): Mikey Camargo MD [STAFF PHYSICIAN] - 4 Weeks ([facility] will call patient with appointment date and time.) Heladio Cruz MD [Primary Care Provider] - 1-2 days Patient Instructions/Handouts: Chronic Pericarditis (DC) Activity/Diet/Wound Care/Special Instructions: Activity: As tolerated. Take breaks as needed. Diet: Heart healthy and carb consistent diet. Avoid salts, or foods with hidden salts such as canned or boxed foods and frozen dinners. Extra salt makes your heart work harder and traps the fluid in your body for longer. Special Instructions: Take all of your medications as directed and remember to keep all of your doctor's appointments and follow-up as needed. Thank you for allowing us to participate in your care, it was truly a pleasure having you for our patient and getting the opportunity to learn more about you and your family!! Wish your son the best of luck in [place] and your daughter the best of luck in [employer] school!! Truly wish you blessed and healthy years ahead!! Discharge Disposition: HOME SELF-CARE
== END 2023-03-01 14:15 | disposition home or self-care (01) ==
LOC: EC 11:20 → 6NMEDSUR 14:06
PROVIDERS: ADMIT Student in an Organized Health Care Education/Training Program; ATTEND Student in an Organized Health Care Education/Training Program
DX: I31.9 Disease of pericardium, unspecified (principal); R07.9 Chest pain, unspecified; C90.00 Multiple myeloma not having achieved remission; R00.1 Bradycardia, unspecified; I10 Essential (primary) hypertension; E78.5 Hyperlipidemia, unspecified; R26.81 Unsteadiness on feet; E03.9 Hypothyroidism, unspecified; Z86.73 Personal history of transient ischemic attack (TIA), and cerebral infarction without residual deficits; Z79.890 Hormone replacement therapy; Z79.899 Other long term (current) drug therapy
CPT/HCPCS: 99285; 36415; 94760; 93005; 93306; 85379; 80061; 80053; 83735; 84484; 85025; 85610; 85730; 71046; G0378 ×2